=== PATIENT | male | born 1995 | race Caucasian/White ===

== ENCOUNTER 2019-07-31 10:40 | Emergency (ER) | payer MEDICAID ==
[~2019-07-31] VITALS: Ht 170.2 cm; Wt 87.5 kg
[2019-07-31 10:48] VITALS: BP 124/81; Ht 170.2 cm; Wt 87.5 kg
== END 2019-07-31 11:14 | disposition home or self-care (01) ==
LOC: ED 10:40
DX: J06.9 Acute upper respiratory infection, unspecified (principal)